=== PATIENT | male | born 1980 | race Caucasian/White ===

== ENCOUNTER 2019-07-17 12:18 | Emergency (ER) | payer OTHER ==
[2019-07-17 12:50] VITALS: BP 152/84; PULSE 85; TEMP 98.9; BMI 25.4
--- NOTE | 2019-07-17 13:13 | PDOC ---
History of Present Illness - General Chief Complaint: Pain Stated Complaint: GROIN PAIN Time Seen by Provider: 07/17/19 12:54 - History of Present Illness Initial Comments: 07/17/19 13:07 38-year-old male without comorbidities presents for evaluation of right groin pain after picking up a heavy box about 4 hours prior to arrival at work. Past History - Past Medical History Allergies/Adverse Reactions: Allergies Allergy/AdvReac Type Severity Reaction Status Date / Time No Known Allergies Allergy Verified 07/17/19 12:48 COPD: No - Psycho Social/Smoking Cessation Hx Smoking History: Never smoked Have you smoked in the past 12 months: No Information on smoking cessation initiated: No Hx Alcohol Use: No Drug/Substance Use Hx: No Review of Systems - Review of Systems : Yes: See HPI *Physical Exam - Vital Signs Last Vital Signs Temp Pulse Resp BP Pulse Ox 98.9 F 85 16 152/84 100 07/17/19 12:20 07/17/19 12:20 07/17/19 12:20 07/17/19 12:20 07/17/19 12:20 - Physical Exam Comments: 07/17/19 13:07 HEAD: NC/AT EYES: Conjuntiva clear NOSE: No d/c THROAT: Moist mucous membrances NECK: Supple LUNGS: No distress ABDOMEN: Soft NT ND MS: Full ROM in all joints without edema NEUROLOGIC: No gross sensory or motor deficits, NVID SKIN: Normal color and temperature no lesions or rashes External genitalia are normal. There is no bilateral deformity no inguinal tenderness bilaterally. No palpable defect bilaterally. Medical Decision Making - Medical Decision Making 07/17/19 13:13 Right sided inguinal hernia suspected. Will refer to general surgery. Patient is in agreement with the plan. Discharge - Discharge Information Problems reviewed: Yes Clinical Impression/Diagnosis: Groin pain Condition: Stable Disposition: HOME - Admission No - Follow up/Referral Referrals: Maged Sargent MD [Staff Physician] - - Patient Discharge Instructions Additional Instructions: Return to the emergency room for worsening symptoms. Without fail please follow -up with general surgery in 1 to 2 days for further evaluation and treatment options. - Post Discharge Activity
== END 2019-07-17 14:03 | disposition home or self-care (01) ==
LOC: JERFT 12:18
DX: R10.30 Lower abdominal pain, unspecified (principal); X50.0XXA Overexertion from strenuous movement or load, initial encounter; X50.9XXA Other and unspecified overexertion or strenuous movements or postures, initial encounter; Y93.89 Activity, other specified; Y92.89 Other specified places as the place of occurrence of the external cause; Y99.8 Other external cause status
CPT/HCPCS: 99281-25